=== PATIENT | female | born 1990 | race African-American/Black ===

== ENCOUNTER 2022-11-06 05:15 | Day surgery (SDC) | payer OTHER ==
[2022-11-02 09:14] VITALS: BMI 21.4
[2022-11-06] MEDS ORDERED: BUPIVACAINE HCL/PF 0.25% (2.5MG/ML) 10 ML VIAL ONE (08:10)
[2022-11-06] MEDS ORDERED: PROPOFOL 20 ML ONE (12:38)
[2022-11-06] MEDS ORDERED: MIDAZOLAM HCL 2 MG/2 ML SINGLE DOSE VIAL ONE (12:39)
[2022-11-06] MEDS ORDERED: ceFAZolin SODIUM 1 GM VIAL IVPB ONE (12:55)
[2022-11-06] MEDS ORDERED: BUPIVACAINE HCL/PF 0.25% (2.5MG/ML) 10 ML VIAL IJ ONE (13:09)
[2022-11-06] MEDS ORDERED: ONDANSETRON 4 MG/2 ML VIAL IVPUSH PRN (13:09)
[2022-11-06] MEDS ORDERED: oxyCODONE HCL 5 MG TABLET PO PRN (13:09)
[2022-11-06] MEDS ORDERED: LACTATED RINGERS SOLUTION 1,000 ML IV SCH (13:15)
[2022-11-06] MEDS ORDERED: oxyCODONE HCL 5 MG TABLET ONE (15:39)
[2022-11-06] MEDS ORDERED: oxyCODONE HCL 5 MG TABLET PO ONE ×2 (15:46→16:24)
[2022-11-06 16:47] VITALS: RESP 18
[2022-11-06 17:41] VITALS: BP 137/88; PULSE 85; TEMP 97.7
== END 2022-11-06 17:52 | disposition home or self-care (01) ==
LOC: EDBD → JASU-SURG 05:15
PROVIDERS: ATTEND Surgery
PROC: 06BY0ZC Excision of Hemorrhoidal Plexus, Open Approach (ICD-10-PCS; principal; 2022-11-06 10:00)
DX: K64.3 Fourth degree hemorrhoids (principal)
CPT/HCPCS: 81025; 88304-TC; 88341-TC; 88342-TC; 94760